=== PATIENT | female | born 1935 | race African-American/Black ===

== ENCOUNTER 2019-03-22 04:50 | Inpatient (IN) ==
[2019-03-22] MEDS ORDERED: KETAMINE 500 MG/10 ML VIAL IV STA (05:04)
[2019-03-22] MEDS ORDERED: SODIUM CHLORIDE 0.9% 1,000 ML IV STA (05:11)
[2019-03-22] MEDS ORDERED: NOREPINEPHRINE 8 MG in SODIUM CHLORIDE 0.9% 242 ML IV PRN (05:11)
[2019-03-22] MEDS ORDERED: NOREPINEPHRINE 4 MG/4 ML VIAL IV ONE (05:12)
[2019-03-22 05:17] LABS: Basophils % 0.3 % (0.0-0.8); Hematocrit 33.8 VOL% (35.7-47.0); Hemoglobin 10.4 GM/DL (12.0-16.0); Immature Granulocytes % 0.7 %; Immature Granulocytes Absolute 0.08 #; Lymphocytes # 1.4 10*3/uL (1.4-4.0); Lymphocytes % 12.7 % (21.3-54.2); Mean Corpuscular HGB Conc 30.8 GM/DL (32-36); Mean Corpuscular Volume 97.4 FL (87-102); Mean Platelet Volume 11.2 FL (9.6-12.0); Monocytes % 6.2 % (1.7-12.7); Neutrophils % 80.1 % (38.7-73.9); Platelet Count 193 T/CUMM (130-400); Red Blood Count 3.47 MC/CUMM (3.8-5.5); Red Cell Distribution Width 12.9 % (9.3-17.3); White Blood Count 11.1 T/CUMM (4-12)
[2019-03-22 05:23] LABS: ABG Base Excess -5.5 MMOL/L (-2.5-2.5); ABG HCO3 19.9 MMOL/L (20-26); ABG Oxygen Saturation 99.7 % (95-100); ABG PCO2 30.2 MM HG (35-48); ABG PH 7.394 (7.35-7.45); ABG TCO2 16.7 MMOL/L (23-27); Allen Test Positive; Pt O2 Delivery Device Ventilator
[2019-03-22 05:30] LABS: PT Patient Result 10.4 SECS; Partial Thromboplastin Time 23.4 SECS (0-40)
[2019-03-22 05:40] LABS: Albumin 3.9 G/DL (3.4-5.0); Bilirubin,Total 0.4 MG/DL (0.2-1.0); Osmolality,Calculated 295.2 MOS/KG (273-304); Total Protein 7.5 G/DL (6.4-8.3)
[2019-03-22] MEDS ORDERED: DEXTROSE 50% 25 GM/50 ML VIAL IV PRN (06:27)
[2019-03-22] MEDS ORDERED: GLUCAGON 1 MG VIAL IM PRN (06:27)
[2019-03-22] MEDS: MIDAZOLAM 100 MG in SODIUM CHLORIDE 0.9% 80 ML IV PRN (07:30)
[2019-03-22] MEDS: LACTATED RINGERS 1,000 ML IV SCH ×2 (07:31→16:51)
[2019-03-22] MEDS ORDERED: ONDANSETRON 4 MG/2 ML VIAL IV PRN (09:27)
[2019-03-22] MEDS: FAMOTIDINE 20 MG/2 ML VIAL IV SCH ×2 (10:14→21:10)
[2019-03-22] MEDS: INSULIN LISPRO 100 UNIT/ML SUBCUT SCH ×4 (10:20→23:15)
[2019-03-22] MEDS: MORPHINE 4 MG/1 ML VIAL IV PRN ×3 (10:38→23:30)
[2019-03-22] MEDS ORDERED: OXYMETAZOLINE 0.05% NASAL SPRAY 15 ML BOTTLE ONE (12:01)
[2019-03-22] MEDS ORDERED: INSULIN LISPRO 100 UNIT/ML SUBCUT SCH ×2 (16:59→17:02)
[2019-03-22] MEDS: hydrALAZINE 20 MG/1 ML VIAL IV PRN (17:39)
[2019-03-22] MEDS ORDERED: niCARdipine INJ 25 MG in SODIUM CHLORIDE 0.9% 240 ML IV PRN (17:47)
[2019-03-22] MEDS ORDERED: PROPOFOL 1,000 MG/100 ML BOTTLE IV ONE (17:48)
[2019-03-22] MEDS: PROPOFOL 1,000 MG/100 ML BOTTLE IV SCH (17:52)
[2019-03-23] MEDS: INSULIN LISPRO 100 UNIT/ML SUBCUT SCH ×6 (00:47→23:37)
[2019-03-23] MEDS: hydrALAZINE 20 MG/1 ML VIAL IV PRN (00:55)
[2019-03-23] MEDS: LACTATED RINGERS 1,000 ML IV SCH (04:04)
[2019-03-23 04:18] LABS: ABG Base Excess -4.9 MMOL/L (-2.5-2.5); ABG HCO3 18.2 MMOL/L (20-26); ABG Oxygen Saturation 98.9 % (95-100); ABG PCO2 27.8 MM HG (35-48); ABG PH 7.433 (7.35-7.45); ABG PO2 177.1 MM HG (80-95); Allen Test Positive; Pt O2 Delivery Device Ventilator
[2019-03-23] MEDS: MORPHINE 4 MG/1 ML VIAL IV PRN (05:08)
[2019-03-23 05:24] LABS: Basophils % 0.3 % (0.0-0.8); Eosinophils % 0.3 % (0.00-10.9); Hematocrit 29.1 VOL% (35.7-47.0); Hemoglobin 9.5 GM/DL (12.0-16.0); Immature Granulocytes % 0.4 %; Immature Granulocytes Absolute 0.04 #; Lymphocytes # 1.8 10*3/uL (1.4-4.0); Lymphocytes % 18.1 % (21.3-54.2); Mean Corpuscular HGB Conc 32.6 GM/DL (32-36); Mean Corpuscular Volume 93.9 FL (87-102); Mean Platelet Volume 11.6 FL (9.6-12.0); Neutrophils % 67.9 % (38.7-73.9); Platelet Count 171 T/CUMM (130-400); Red Cell Distribution Width 13.2 % (9.3-17.3); White Blood Count 9.8 T/CUMM (4-12)
[2019-03-23 05:46] LABS: Blood Urea Nitrogen 41 MG/DL (7-18); Calcium 8.8 MG/DL (8.5-10.1); Glucose 146 MG/DL (74-106); Osmolality,Calculated 289.5 MOS/KG (273-304); Troponin I < 0.015 NG/ML (0.00-0.045)
[2019-03-23] MEDS: MIDAZOLAM 100 MG in SODIUM CHLORIDE 0.9% 80 ML IV PRN (06:10)
[2019-03-23] MEDS: PROPOFOL 1,000 MG/100 ML BOTTLE IV SCH ×3 (07:55→18:11)
[2019-03-23] MEDS ORDERED: ISOSORBIDE MONONITRATE 60 MG TABLET PO SCH (09:00)
[2019-03-23] MEDS: CARVEDILOL 6.25 MG TABLET PO SCH ×2 (09:27→21:15)
[2019-03-23] MEDS: ATORVASTATIN 40 MG TABLET PO SCH (09:27)
[2019-03-23] MEDS: FAMOTIDINE 20 MG/2 ML VIAL IV SCH (09:27)
[2019-03-23] MEDS: amLODIPine 5 MG TABLET PO SCH (09:27)
[2019-03-23] MEDS ORDERED: MAGNESIUM SULF RIDER 2 GM in PREMIX 1 EACH IV ONE (09:56)
[2019-03-23] MEDS: NITROGLYCERIN 2% OINT 1 INCH/GM PACK TOP SCH ×2 (12:04→18:12)
[2019-03-24] MEDS: NITROGLYCERIN 2% OINT 1 INCH/GM PACK TOP SCH ×4 (00:01→18:48)
[2019-03-24 04:18] LABS: ABG Base Excess -5.6 MMOL/L (-2.5-2.5); ABG HCO3 19.8 MMOL/L (20-26); ABG PCO2 37.3 MM HG (35-48); ABG PH 7.332 (7.35-7.45); ABG TCO2 18.4 MMOL/L (23-27); Allen Test Positive; Pt O2 Delivery Device Ventilator
[2019-03-24] MEDS: PROPOFOL 1,000 MG/100 ML BOTTLE IV SCH ×4 (04:23→20:59)
[2019-03-24 05:43] LABS: Basophils % 0.2 % (0.0-0.8); Eosinophils % 0.1 % (0.00-10.9); Hemoglobin 7.8 GM/DL (12.0-16.0); Immature Granulocytes % 0.7 %; Immature Granulocytes Absolute 0.07 #; Lymphocytes % 9.8 % (21.3-54.2); Mean Corpuscular Volume 100.8 FL (87-102); Mean Platelet Volume 11.4 FL (9.6-12.0); Monocytes % 15.2 % (1.7-12.7); Platelet Count 129 T/CUMM (130-400); Red Blood Count 2.58 MC/CUMM (3.8-5.5); Red Cell Distribution Width 13.4 % (9.3-17.3); White Blood Count 10.6 T/CUMM (4-12)
[2019-03-24 06:12] LABS: Calcium 8.6 MG/DL (8.5-10.1); Osmolality,Calculated 290.8 MOS/KG (273-304)
[2019-03-24 06:42] LABS: Calcium 8.4 MG/DL (8.5-10.1); Prealbumin 18.5 MG/DL (20-40)
[2019-03-24] MEDS: INSULIN LISPRO 100 UNIT/ML SUBCUT SCH ×3 (07:18→18:23)
[2019-03-24] MEDS: LACTATED RINGERS 1,000 ML IV SCH ×3 (07:26→16:37)
[2019-03-24] MEDS: CARVEDILOL 6.25 MG TABLET PO SCH ×2 (08:52→20:06)
[2019-03-24] MEDS: INSULIN GLARGINE 100 UNIT/ML SUBCUT SCH (08:52)
[2019-03-24] MEDS: FAMOTIDINE 20 MG/2 ML VIAL IV SCH (08:53)
[2019-03-24] MEDS: ATORVASTATIN 40 MG TABLET PO SCH (08:53)
[2019-03-24] MEDS: amLODIPine 5 MG TABLET PO SCH (08:53)
[2019-03-24] MEDS: MIDAZOLAM 100 MG in SODIUM CHLORIDE 0.9% 80 ML IV PRN (09:00)
[2019-03-25] MEDS: INSULIN LISPRO 100 UNIT/ML SUBCUT SCH ×4 (00:54→18:25)
[2019-03-25] MEDS: NITROGLYCERIN 2% OINT 1 INCH/GM PACK TOP SCH ×4 (00:55→17:09)
[2019-03-25] MEDS: PROPOFOL 1,000 MG/100 ML BOTTLE IV SCH ×2 (02:52→17:08)
[2019-03-25 04:14] LABS: Allen Test Positive; Pt O2 Delivery Device Ventilator
[2019-03-25 04:15] LABS: ABG HCO3 16.9 MMOL/L (20-26); ABG PCO2 31.9 MM HG (35-48); ABG PH 7.342 (7.35-7.45); ABG PO2 86.6 MM HG (80-95); ABG TCO2 17.9 MMOL/L (23-27)
[2019-03-25 06:16] LABS: Basophils % 0.1 % (0.0-0.8); Hematocrit 23.6 VOL% (35.7-47.0); Hemoglobin 7.4 GM/DL (12.0-16.0); Immature Granulocytes % 0.6 %; Immature Granulocytes Absolute 0.04 #; Lymphocytes # 0.6 10*3/uL (1.4-4.0); Lymphocytes % 8.8 % (21.3-54.2); Mean Corpuscular HGB Conc 31.4 GM/DL (32-36); Mean Corpuscular Volume 96.3 FL (87-102); Mean Platelet Volume 11.8 FL (9.6-12.0); Monocytes % 12.1 % (1.7-12.7); Neutrophils % 78.4 % (38.7-73.9); Platelet Count 126 T/CUMM (130-400); Red Blood Count 2.45 MC/CUMM (3.8-5.5); Red Cell Distribution Width 13.2 % (9.3-17.3); White Blood Count 7.2 T/CUMM (4-12)
[2019-03-25 06:33] LABS: Calcium 8.1 MG/DL (8.5-10.1); Osmolality,Calculated 293.4 MOS/KG (273-304)
[2019-03-25 06:37] LABS: Hypochromasia 1+; Platelet Estimate Normal
[2019-03-25] MEDS: LACTATED RINGERS 1,000 ML IV SCH ×3 (07:32→16:30)
[2019-03-25] MEDS ORDERED: SODIUM CHLORIDE 0.9% 1,000 ML IV PRN (07:42)
[2019-03-25] MEDS: amLODIPine 5 MG TABLET PO SCH (08:44)
[2019-03-25] MEDS: CARVEDILOL 6.25 MG TABLET PO SCH ×2 (08:45→20:53)
[2019-03-25] MEDS: ATORVASTATIN 40 MG TABLET PO SCH (08:45)
[2019-03-25] MEDS: FAMOTIDINE 20 MG/2 ML VIAL IV SCH (08:45)
[2019-03-25] MEDS: INSULIN GLARGINE 100 UNIT/ML SUBCUT SCH (08:46)
[2019-03-26] MEDS: INSULIN LISPRO 100 UNIT/ML SUBCUT SCH ×4 (01:18→18:18)
[2019-03-26] MEDS: NITROGLYCERIN 2% OINT 1 INCH/GM PACK TOP SCH ×4 (01:19→17:45)
[2019-03-26 04:17] LABS: Allen Test Positive; Pt O2 Delivery Device Ventilator
[2019-03-26 04:18] LABS: ABG Base Excess -7.4 MMOL/L (-2.5-2.5); ABG HCO3 18.3 MMOL/L (20-26); ABG Oxygen Saturation 89.3 % (95-100); ABG PCO2 32.8 MM HG (35-48); ABG PH 7.334 (7.35-7.45); ABG PO2 58.8 MM HG (80-95); ABG TCO2 14.9 MMOL/L (23-27)
[2019-03-26 04:48] LABS: ABG HCO3 17.8 MMOL/L (20-26); ABG Oxygen Saturation 91.6 % (95-100); ABG PCO2 29.4 MM HG (35-48); ABG PH 7.356 (7.35-7.45); ABG PO2 62.4 MM HG (80-95); ABG TCO2 15.1 MMOL/L (23-27); Allen Test Positive; Pt O2 Delivery Device Ventilator
[2019-03-26 04:59] LABS: Basophils % 0.3 % (0.0-0.8); Hematocrit 28.2 VOL% (35.7-47.0); Hemoglobin 9.3 GM/DL (12.0-16.0); Lymphocytes # 0.8 10*3/uL (1.4-4.0); Lymphocytes % 7.7 % (21.3-54.2); Mean Corpuscular Volume 92.8 FL (87-102); Mean Platelet Volume 11.9 FL (9.6-12.0); Monocytes % 14.3 % (1.7-12.7); Neutrophils % 76.7 % (38.7-73.9); Platelet Count 128 T/CUMM (130-400); Red Blood Count 3.04 MC/CUMM (3.8-5.5); Red Cell Distribution Width 13.7 % (9.3-17.3); White Blood Count 9.8 T/CUMM (4-12)
[2019-03-26 05:13] LABS: Osmolality,Calculated 302.1 MOS/KG (273-304)
[2019-03-26 05:36] LABS: Band Neutrophils 16 % (0-10); Hypochromasia Slight; Lymphocytes 7 % (20-55); Platelet Estimate Normal; Segmented Neutrophils 65 % (50-85); Total Cells Counted 100
[2019-03-26] MEDS ORDERED: SODIUM CHLORIDE 0.9% 1,000 ML IV SCH (06:30)
[2019-03-26] MEDS: PIPERACILLIN/TAZOBACTAM 3,375 MG in SODIUM CHLORIDE 0.9% 100 ML IV SCH ×2 (07:10→19:45)
[2019-03-26] MEDS: methylPREDNISolone SOD SUC 40 MG/1 ML VIAL IV SCH ×3 (07:10→21:36)
[2019-03-26] MEDS ORDERED: INSULIN GLARGINE 100 UNIT/ML SUBCUT SCH (08:36)
[2019-03-26] MEDS: LACTATED RINGERS 1,000 ML IV SCH (08:43)
[2019-03-26] MEDS: FAMOTIDINE 20 MG/2 ML VIAL IV SCH (09:12)
[2019-03-26] MEDS: ATORVASTATIN 40 MG TABLET PO SCH (09:12)
[2019-03-26] MEDS: CARVEDILOL 6.25 MG TABLET PO SCH ×2 (09:12→21:40)
[2019-03-26] MEDS: amLODIPine 5 MG TABLET PO SCH (09:12)
[2019-03-26] MEDS: SODIUM BICARB INJ 50 MEQ in SODIUM CHLORIDE 0.45% 1,000 ML IV SCH ×2 (09:50→19:48)
[2019-03-26] MEDS: SODIUM CHLORIDE 0.65% NASAL SPRAY 45 ML BOTTLE BOTH NARES SCH ×2 (14:51→21:35)
[2019-03-26] MEDS: ALBUTEROL/IPRATROPIUM 3 ML NEB RESP TX SCH ×3 (16:06→22:50)
[2019-03-26] MEDS: PROPOFOL 1,000 MG/100 ML BOTTLE IV SCH (17:44)
[2019-03-26] MEDS: MORPHINE 4 MG/1 ML VIAL IV PRN (21:38)
[2019-03-27] MEDS: INSULIN LISPRO 100 UNIT/ML SUBCUT SCH ×4 (00:21→17:55)
[2019-03-27] MEDS: NITROGLYCERIN 2% OINT 1 INCH/GM PACK TOP SCH ×4 (00:22→18:06)
[2019-03-27] MEDS: ALBUTEROL/IPRATROPIUM 3 ML NEB RESP TX SCH ×6 (03:05→23:23)
[2019-03-27 04:18] LABS: ABG Base Excess -7.5 MMOL/L (-2.5-2.5); ABG HCO3 18.3 MMOL/L (20-26); ABG PCO2 31.6 MM HG (35-48); ABG PH 7.346 (7.35-7.45); ABG PO2 79.6 MM HG (80-95); ABG TCO2 15.9 MMOL/L (23-27); Allen Test Positive; Pt O2 Delivery Device Ventilator
[2019-03-27 05:08] LABS: Basophils % 0.3 % (0.0-0.8); Hematocrit 27.8 VOL% (35.7-47.0); Hemoglobin 9.3 GM/DL (12.0-16.0); Immature Granulocytes % 0.6 %; Immature Granulocytes Absolute 0.05 #; Lymphocytes # 0.5 10*3/uL (1.4-4.0); Lymphocytes % 5.5 % (21.3-54.2); Mean Corpuscular HGB Conc 33.5 GM/DL (32-36); Mean Corpuscular Volume 91.4 FL (87-102); Mean Platelet Volume 11.7 FL (9.6-12.0); Monocytes % 10.1 % (1.7-12.7); NRBC # 0.02 10*3/uL; Neutrophils % 83.5 % (38.7-73.9); Platelet Count 145 T/CUMM (130-400); Red Blood Count 3.04 MC/CUMM (3.8-5.5); Red Cell Distribution Width 13.7 % (9.3-17.3); White Blood Count 8.6 T/CUMM (4-12)
[2019-03-27 05:37] LABS: Calcium 7.7 MG/DL (8.5-10.1); Osmolality,Calculated 307.2 MOS/KG (273-304)
[2019-03-27] MEDS: SODIUM BICARB INJ 50 MEQ in SODIUM CHLORIDE 0.45% 1,000 ML IV SCH ×3 (05:51→21:01)
[2019-03-27 05:56] LABS: Band Neutrophils 3 % (0-10); Lymphocytes 7 % (20-55); Segmented Neutrophils 86 % (50-85); Total Cells Counted 100
[2019-03-27 05:57] LABS: Hypochromasia 1+; Microcytosis Slight; Platelet Estimate Adequate
[2019-03-27] MEDS: methylPREDNISolone SOD SUC 40 MG/1 ML VIAL IV SCH ×3 (06:30→22:27)
[2019-03-27] MEDS: PIPERACILLIN/TAZOBACTAM 3,375 MG in SODIUM CHLORIDE 0.9% 100 ML IV SCH ×2 (06:30→18:17)
[2019-03-27] MEDS ORDERED: LEVOFLOXACIN INJ 750 MG in PREMIX 1 EACH IV SCH (08:30)
[2019-03-27] MEDS: INSULIN GLARGINE 100 UNIT/ML SUBCUT SCH (09:19)
[2019-03-27] MEDS: CARVEDILOL 6.25 MG TABLET PO SCH ×2 (09:20→22:25)
[2019-03-27] MEDS: amLODIPine 5 MG TABLET PO SCH (09:20)
[2019-03-27] MEDS: ATORVASTATIN 40 MG TABLET PO SCH (09:20)
[2019-03-27] MEDS: FAMOTIDINE 20 MG/2 ML VIAL IV SCH (09:20)
[2019-03-27] MEDS: SODIUM CHLORIDE 0.65% NASAL SPRAY 45 ML BOTTLE BOTH NARES SCH ×3 (09:35→22:25)
[2019-03-28] MEDS: NITROGLYCERIN 2% OINT 1 INCH/GM PACK TOP SCH ×3 (00:32→12:04)
[2019-03-28] MEDS: INSULIN LISPRO 100 UNIT/ML SUBCUT SCH ×5 (01:29→23:54)
[2019-03-28] MEDS: ALBUTEROL/IPRATROPIUM 3 ML NEB RESP TX SCH ×6 (03:32→22:52)
[2019-03-28 03:51] LABS: ABG Base Excess -5.2 MMOL/L (-2.5-2.5); ABG HCO3 20.1 MMOL/L (20-26); ABG Oxygen Saturation 94.3 % (95-100); ABG PCO2 31.8 MM HG (35-48); ABG PH 7.384 (7.35-7.45); ABG PO2 72.1 MM HG (80-95); ABG TCO2 17.2 MMOL/L (23-27); Allen Test Positive
[2019-03-28 04:54] LABS: Basophils % 0.3 % (0.0-0.8); Hematocrit 30.8 VOL% (35.7-47.0); Hemoglobin 10.3 GM/DL (12.0-16.0); Immature Granulocytes Absolute 0.11 #; Lymphocytes # 0.6 10*3/uL (1.4-4.0); Lymphocytes % 5.1 % (21.3-54.2); Mean Corpuscular HGB Conc 33.4 GM/DL (32-36); Mean Corpuscular Volume 91.1 FL (87-102); Mean Platelet Volume 11.6 FL (9.6-12.0); Monocytes % 7.2 % (1.7-12.7); Neutrophils % 86.4 % (38.7-73.9); Platelet Count 189 T/CUMM (130-400); Red Blood Count 3.38 MC/CUMM (3.8-5.5); Red Cell Distribution Width 13.6 % (9.3-17.3); White Blood Count 10.8 T/CUMM (4-12)
[2019-03-28 05:16] LABS: Calcium 8.2 MG/DL (8.5-10.1); Osmolality,Calculated 306.1 MOS/KG (273-304)
[2019-03-28 05:42] LABS: Band Neutrophils 1 % (0-10); Lymphocytes 10 % (20-55); Platelet Estimate Normal; Segmented Neutrophils 84 % (50-85); Total Cells Counted 100
[2019-03-28] MEDS: methylPREDNISolone SOD SUC 40 MG/1 ML VIAL IV SCH ×3 (06:26→23:28)
[2019-03-28] MEDS: PIPERACILLIN/TAZOBACTAM 3,375 MG in SODIUM CHLORIDE 0.9% 100 ML IV SCH (06:27)
[2019-03-28] MEDS: SODIUM BICARB INJ 50 MEQ in SODIUM CHLORIDE 0.45% 1,000 ML IV SCH ×2 (07:39→11:10)
[2019-03-28] MEDS ORDERED: AMPICILLIN INJ 1,000 MG in SODIUM CHLORIDE 0.9% 100 ML IV SCH (09:00)
[2019-03-28] MEDS: amLODIPine 5 MG TABLET PO SCH (09:21)
[2019-03-28] MEDS: CARVEDILOL 6.25 MG TABLET PO SCH ×2 (09:21→20:57)
[2019-03-28] MEDS: ATORVASTATIN 40 MG TABLET PO SCH (09:21)
[2019-03-28] MEDS: FAMOTIDINE 20 MG/2 ML VIAL IV SCH (09:22)
[2019-03-28] MEDS: INSULIN GLARGINE 100 UNIT/ML SUBCUT SCH (09:25)
[2019-03-28] MEDS: SODIUM CHLORIDE 0.65% NASAL SPRAY 45 ML BOTTLE BOTH NARES SCH ×3 (09:37→21:46)
[2019-03-28] MEDS: MORPHINE 4 MG/1 ML VIAL IV PRN ×2 (10:30→20:57)
[2019-03-28] MEDS ORDERED: cefTRIAXone 1,000 MG in SYRINGE 1 EACH IV SCH (13:30)
[2019-03-28] MEDS: ISOSORBIDE MONONITRATE 30 MG TABLET PO SCH (14:04)
[2019-03-29] MEDS: ALBUTEROL/IPRATROPIUM 3 ML NEB RESP TX SCH ×6 (02:07→23:35)
[2019-03-29 03:33] LABS: ABG Base Excess -4.5 MMOL/L (-2.5-2.5); ABG HCO3 21.3 MMOL/L (20-26); ABG Oxygen Saturation 93.3 % (95-100); ABG PCO2 41.8 MM HG (35-48); ABG PH 7.325 (7.35-7.45); ABG PO2 81.3 MM HG (80-95); ABG TCO2 22.6 MMOL/L (23-27); Allen Test Positive; Pt O2 Delivery Device Other
[2019-03-29] MEDS: SODIUM BICARB INJ 50 MEQ in SODIUM CHLORIDE 0.45% 1,000 ML IV SCH ×3 (04:30→21:39)
[2019-03-29 04:53] LABS: Basophils % 0.2 % (0.0-0.8); Hematocrit 31.7 VOL% (35.7-47.0); Hemoglobin 10.6 GM/DL (12.0-16.0); Immature Granulocytes Absolute 0.11 #; Lymphocytes # 0.6 10*3/uL (1.4-4.0); Lymphocytes % 5.7 % (21.3-54.2); Mean Corpuscular HGB Conc 33.4 GM/DL (32-36); Mean Corpuscular Volume 92.2 FL (87-102); Mean Platelet Volume 11.3 FL (9.6-12.0); Monocytes % 6.6 % (1.7-12.7); Neutrophils % 86.5 % (38.7-73.9); Platelet Count 192 T/CUMM (130-400); Red Blood Count 3.44 MC/CUMM (3.8-5.5); Red Cell Distribution Width 13.8 % (9.3-17.3); White Blood Count 10.8 T/CUMM (4-12)
[2019-03-29 05:14] LABS: Calcium 8.5 MG/DL (8.5-10.1); Osmolality,Calculated 310.7 MOS/KG (273-304)
[2019-03-29] MEDS: methylPREDNISolone SOD SUC 40 MG/1 ML VIAL IV SCH ×3 (05:52→21:53)
[2019-03-29] MEDS: INSULIN LISPRO 100 UNIT/ML SUBCUT SCH ×3 (05:55→18:34)
[2019-03-29] MEDS ORDERED: ACETAMINOPHEN 325 MG TABLET PO PRN (07:34)
[2019-03-29] MEDS ORDERED: LEVOFLOXACIN 750 MG TABLET PER TUBE SCH (09:00)
[2019-03-29] MEDS: ATORVASTATIN 40 MG TABLET PO SCH (09:22)
[2019-03-29] MEDS: amLODIPine 10 MG TABLET PO SCH (09:22)
[2019-03-29] MEDS: CARVEDILOL 6.25 MG TABLET PO SCH ×2 (09:23→21:38)
[2019-03-29] MEDS: ISOSORBIDE MONONITRATE 30 MG TABLET PO SCH (09:23)
[2019-03-29] MEDS: FAMOTIDINE 20 MG/2 ML VIAL IV SCH (09:23)
[2019-03-29] MEDS: INSULIN GLARGINE 100 UNIT/ML SUBCUT SCH (09:26)
[2019-03-29] MEDS: SODIUM CHLORIDE 0.65% NASAL SPRAY 45 ML BOTTLE BOTH NARES SCH ×3 (09:27→21:40)
[2019-03-29] MEDS ORDERED: LEVOFLOXACIN 750 MG TABLET PO SCH (09:30)
[2019-03-29] MEDS ORDERED: DONEPEZIL 10 MG TABLET PO SCH (21:00)
[2019-03-29] MEDS: FERROUS SULFATE 325 MG TABLET PO SCH (21:38)
[2019-03-29] MEDS: prednisoLONE ACETATE 1% OPH SUSP 5 ML BOTTLE BOTH EYES SCH (21:48)
[2019-03-30] MEDS: INSULIN LISPRO 100 UNIT/ML SUBCUT SCH ×4 (00:38→17:32)
[2019-03-30] MEDS: ALBUTEROL/IPRATROPIUM 3 ML NEB RESP TX SCH ×5 (03:30→19:55)
[2019-03-30 06:00] LABS: Calcium 8.3 MG/DL (8.5-10.1); Osmolality,Calculated 303.8 MOS/KG (273-304)
[2019-03-30 07:00] LABS: Basophils % 0.1 % (0.0-0.8); Hematocrit 32.8 VOL% (35.7-47.0); Hemoglobin 10.5 GM/DL (12.0-16.0); Immature Granulocytes % 1.4 %; Immature Granulocytes Absolute 0.13 #; Lymphocytes # 0.7 10*3/uL (1.4-4.0); Lymphocytes % 7.3 % (21.3-54.2); Mean Corpuscular Volume 93.4 FL (87-102); Mean Platelet Volume 10.9 FL (9.6-12.0); Neutrophils % 84.2 % (38.7-73.9); Platelet Count 222 T/CUMM (130-400); Red Blood Count 3.51 MC/CUMM (3.8-5.5); Red Cell Distribution Width 13.7 % (9.3-17.3); White Blood Count 9.4 T/CUMM (4-12)
[2019-03-30] MEDS: methylPREDNISolone SOD SUC 40 MG/1 ML VIAL IV SCH ×2 (07:15→15:49)
[2019-03-30] MEDS: prednisoLONE ACETATE 1% OPH SUSP 5 ML BOTTLE BOTH EYES SCH (08:03)
[2019-03-30] MEDS: INSULIN GLARGINE 100 UNIT/ML SUBCUT SCH (08:03)
[2019-03-30] MEDS: SODIUM CHLORIDE 0.65% NASAL SPRAY 45 ML BOTTLE BOTH NARES SCH ×2 (08:03→15:49)
[2019-03-30] MEDS: ATORVASTATIN 40 MG TABLET PO SCH (08:04)
[2019-03-30] MEDS: ISOSORBIDE MONONITRATE 30 MG TABLET PO SCH (08:04)
[2019-03-30] MEDS: CARVEDILOL 6.25 MG TABLET PO SCH (08:04)
[2019-03-30] MEDS: FERROUS SULFATE 325 MG TABLET PO SCH (08:04)
[2019-03-30] MEDS: amLODIPine 10 MG TABLET PO SCH (08:04)
[2019-03-30] MEDS ORDERED: CLOPIDOGREL 75 MG TABLET PO SCH (09:00)
[2019-03-30] MEDS ORDERED: FAMOTIDINE 20 MG TABLET PO SCH (09:00)
[2019-03-30] MEDS: SODIUM BICARB INJ 50 MEQ in SODIUM CHLORIDE 0.45% 1,000 ML IV SCH (13:53)
[2019-03-30] MEDS ORDERED: LIDOCAINE 1%/EPI INJ 20 ML VIAL ONE (15:23)
[2019-03-30] MEDS ORDERED: TISSUE ADHESIVE 1 EACH APPLICATOR TOP ONE (15:23)
[2019-03-30 16:37] VITALS: BP 138/77
[2019-03-30] MEDS ORDERED: LIDOCAINE 1%/EPI INJ 20 ML VIAL INFILTRAT STA (17:02)
== END 2019-03-30 19:41 | DRG 260 ==
LOC: SUATTDRO → EDBD → EDUNIT# → N.ED 04:50 → SUATTDRO 08:03 → N.EDINP 08:03 → N.ICU 14:33 → N.3E 03-30 08:27
PROVIDERS: ADMIT Internal Medicine

== ENCOUNTER 2019-06-30 13:43 | Inpatient (IN) ==
[2019-06-30] MEDS ORDERED: BISACODYL 5 MG TABLET PO PRN (15:11)
[2019-06-30] MEDS ORDERED: ONDANSETRON 4 MG/2 ML VIAL IV PRN (15:11)
[2019-06-30] MEDS ORDERED: ZALEPLON 5 MG CAPSULE PO PRN (15:11)
[2019-06-30] MEDS ORDERED: POTASSIUM CHLORIDE 20 MEQ TABLET PO PRN (15:11)
[2019-06-30] MEDS ORDERED: MAGNESIUM SULF RIDER 2 GM in PREMIX 1 EACH IV PRN (15:11)
[2019-06-30] MEDS ORDERED: MAGNESIUM SULF RIDER 4 GM in PREMIX 1 EACH IV PRN (15:11)
[2019-06-30] MEDS ORDERED: tiZANidine 4 MG TABLET PO PRN (16:14)
[2019-06-30] MEDS ORDERED: NITROGLYCERIN SL 0.4 MG TABLET SL PRN (16:14)
[2019-06-30] MEDS ORDERED: ALBUTEROL/IPRATROPIUM 3 ML NEB RESP TX PRN (16:14)
[2019-06-30] MEDS: SODIUM CHLORIDE 0.9% 1,000 ML IV SCH (16:25)
[2019-06-30] MEDS: PANTOPRAZOLE 40 MG TABLET PO SCH (16:27)
[2019-06-30] MEDS ORDERED: DARBEPOETIN ALFA IN POLYSORBAT 60 MCG SUBCUT SCH (16:30)
[2019-06-30 16:35] LABS: Troponin I < 0.015 NG/ML (0.00-0.045)
[2019-06-30 16:40] LABS: Alanine Aminotransferase 22 U/L (13-56); Albumin 3.4 G/DL (3.4-5.0); Alkaline Phosphatase 74 U/L (45-117); Aspartate Amino Transferase 8 U/L (0-37); Bilirubin,Total < 0.39 MG/DL (0.2-1.0); Blood Urea Nitrogen 53 MG/DL (7-18); Calcium 8.2 MG/DL (8.5-10.1); Estimated Glom Filtration Rate 21 ML/MIN; Glucose 360 MG/DL (74-106); Osmolality,Calculated 296.2 MOS/KG (273-304); Thyroid Stimulating Hormone 0.568 uIU/ml (0.358-3.74); Total Protein 6.7 G/DL (6.4-8.3)
[2019-06-30 16:51] LABS: Basophils % 0.4 % (0.0-0.8); Hematocrit 30.3 VOL% (35.7-47.0); Hemoglobin 9.6 GM/DL (12.0-16.0); Immature Granulocytes % 0.7 %; Immature Granulocytes Absolute 0.05 #; Lymphocytes # 0.6 10*3/uL (1.4-4.0); Lymphocytes % 9.2 % (21.3-54.2); Mean Corpuscular HGB Conc 31.7 GM/DL (32-36); Mean Corpuscular Volume 96.8 FL (87-102); Mean Platelet Volume 11.5 FL (9.6-12.0); Monocytes % 2.7 % (1.7-12.7); Platelet Count 161 T/CUMM (130-400); Red Blood Count 3.13 MC/CUMM (3.8-5.5); Red Cell Distribution Width 14.5 % (9.3-17.3); White Blood Count 6.8 T/CUMM (4-12)
[2019-06-30] MEDS ORDERED: INSULIN LISPRO 100 UNIT/ML SUBCUT PRN (17:00)
[2019-06-30 18:57] LABS: Troponin I < 0.015 NG/ML (0.00-0.045)
[2019-06-30] MEDS ORDERED: SODIUM POLYSTYRENE SULFATE 15 GM/60 ML BOTTLE PO ONE (19:19)
[2019-06-30] MEDS ORDERED: ENOXAPARIN 40 MG/0.4 ML SYRINGE SUBCUT SCH (21:00)
[2019-06-30] MEDS ORDERED: ENOXAPARIN 30 MG/0.3 ML SYRINGE SUBCUT SCH (21:00)
[2019-06-30] MEDS: INSULIN GLARGINE 100 UNIT/ML SUBCUT SCH (21:40)
[2019-06-30] MEDS: DONEPEZIL 10 MG TABLET PO SCH (21:40)
[2019-06-30] MEDS: FERROUS SULFATE 325 MG TABLET PO SCH (21:40)
[2019-06-30] MEDS: ASPIRIN EC 81 MG TABLET PO SCH (21:40)
[2019-06-30] MEDS: carvediloL 6.25 MG TABLET PO SCH (21:40)
[2019-06-30 22:21] LABS: Troponin I < 0.015 NG/ML (0.00-0.045)
[2019-07-01 05:36] LABS: Basophils % 0.3 % (0.0-0.8); Eosinophils % 0.6 % (0.00-10.9); Hematocrit 26.8 VOL% (35.7-47.0); Hemoglobin 8.6 GM/DL (12.0-16.0); Immature Granulocytes % 0.4 %; Immature Granulocytes Absolute 0.03 #; Lymphocytes # 1.6 10*3/uL (1.4-4.0); Lymphocytes % 23.1 % (21.3-54.2); Mean Corpuscular HGB Conc 32.1 GM/DL (32-36); Mean Corpuscular Volume 95.4 FL (87-102); Mean Platelet Volume 11.2 FL (9.6-12.0); Monocytes % 13.1 % (1.7-12.7); Neutrophils % 62.5 % (38.7-73.9); Platelet Count 146 T/CUMM (130-400); Red Blood Count 2.81 MC/CUMM (3.8-5.5); Red Cell Distribution Width 14.2 % (9.3-17.3); White Blood Count 6.7 T/CUMM (4-12)
[2019-07-01 05:54] LABS: Calcium 8.3 MG/DL (8.5-10.1); Osmolality,Calculated 295.1 MOS/KG (273-304); Risk Ratio 2.69; VLDL CHOLESTEROL 21.2 MG/DL
[2019-07-01] MEDS ORDERED: SODIUM CHLORIDE 0.9% 1,000 ML IV SCH (06:00)
[2019-07-01] MEDS ORDERED: diphenhydrAMINE CAP 25 MG CAPSULE PO ONE (06:00)
[2019-07-01] MEDS ORDERED: ceFAZolin 1,000 MG in SYRINGE 1 EACH IV ONE (06:00)
[2019-07-01] MEDS ORDERED: DIAZEPAM 5 MG TABLET PO ONE (06:00)
[2019-07-01] MEDS ORDERED: ceFAZolin 1,000 MG VIAL IRRIG ONE (06:00)
[2019-07-01] MEDS: SODIUM CHLORIDE 0.9% 1,000 ML IV SCH (06:11)
[2019-07-01] MEDS ORDERED: HEPARIN/NACL 0.9% 2 UNITS/ML 1,000 ML IV ONE (07:25)
[2019-07-01] MEDS ORDERED: LIDOCAINE 1% 20 ML VIAL ONE ×2 (07:25→08:14)
[2019-07-01] MEDS: amLODIPine 10 MG TABLET PO SCH ×2 (07:32→08:27)
[2019-07-01] MEDS: carvediloL 6.25 MG TABLET PO SCH ×3 (07:32→21:29)
[2019-07-01] MEDS: CLOPIDOGREL 75 MG TABLET PO SCH ×2 (07:33→08:27)
[2019-07-01] MEDS ORDERED: TISSUE ADHESIVE 1 EACH APPLICATOR TOP ONE (08:13)
[2019-07-01] MEDS ORDERED: ceFAZolin 1,000 MG VIAL ONE (08:14)
[2019-07-01] MEDS ORDERED: HEPARIN/NACL 0.9% 2 UNITS/ML 500 ML IV ONE (08:14)
[2019-07-01] MEDS ORDERED: MIDAZOLAM 2 MG/2 ML VIAL ONE (08:28)
[2019-07-01] MEDS ORDERED: fentaNYL 100 MCG/2 ML VIAL ONE (08:28)
[2019-07-01] MEDS ORDERED: LISINOPRIL/HCTZ 20-25 MG TABLET PO SCH (09:00)
[2019-07-01] MEDS ORDERED: GLUCAGON 1 MG VIAL IM PRN (11:37)
[2019-07-01] MEDS ORDERED: DEXTROSE 50% 25 GM/50 ML VIAL IV PRN (11:37)
[2019-07-01] MEDS: glipiZIDE 5 MG TABLET PO SCH (12:49)
[2019-07-01] MEDS: FERROUS SULFATE 325 MG TABLET PO SCH ×2 (14:05→21:29)
[2019-07-01] MEDS: ISOSORBIDE MONONITRATE 60 MG TABLET PO SCH (14:05)
[2019-07-01] MEDS: ATORVASTATIN 40 MG TABLET PO SCH (14:06)
[2019-07-01] MEDS: PANTOPRAZOLE 40 MG TABLET PO SCH (14:06)
[2019-07-01] MEDS: INSULIN GLARGINE 100 UNIT/ML SUBCUT SCH (21:29)
[2019-07-01] MEDS: ASPIRIN EC 81 MG TABLET PO SCH (21:29)
[2019-07-01] MEDS: DONEPEZIL 10 MG TABLET PO SCH (21:29)
[2019-07-02 06:47] LABS: Basophils % 0.6 % (0.0-0.8); Eosinophils # 0.1 10*3/uL (0.0-0.87); Eosinophils % 1.3 % (0.00-10.9); Hematocrit 27.4 VOL% (35.7-47.0); Hemoglobin 8.5 GM/DL (12.0-16.0); Immature Granulocytes % 0.6 %; Immature Granulocytes Absolute 0.04 #; Lymphocytes # 1.2 10*3/uL (1.4-4.0); Mean Corpuscular Volume 98.6 FL (87-102); Mean Platelet Volume 10.9 FL (9.6-12.0); Monocytes % 10.6 % (1.7-12.7); Neutrophils % 68.9 % (38.7-73.9); Platelet Count 147 T/CUMM (130-400); Red Blood Count 2.78 MC/CUMM (3.8-5.5); Red Cell Distribution Width 14.5 % (9.3-17.3); White Blood Count 6.9 T/CUMM (4-12)
[2019-07-02 07:13] LABS: Calcium 7.9 MG/DL (8.5-10.1); Osmolality,Calculated 294.8 MOS/KG (273-304)
[2019-07-02 07:56] VITALS: BP 107/56
[2019-07-02] MEDS: amLODIPine 10 MG TABLET PO SCH (09:54)
[2019-07-02] MEDS: PANTOPRAZOLE 40 MG TABLET PO SCH (09:54)
[2019-07-02] MEDS: FERROUS SULFATE 325 MG TABLET PO SCH (09:54)
[2019-07-02] MEDS: CLOPIDOGREL 75 MG TABLET PO SCH (09:54)
[2019-07-02] MEDS: glipiZIDE 5 MG TABLET PO SCH (09:54)
[2019-07-02] MEDS: carvediloL 6.25 MG TABLET PO SCH (09:54)
[2019-07-02] MEDS: ATORVASTATIN 40 MG TABLET PO SCH (09:54)
[2019-07-02] MEDS: ISOSORBIDE MONONITRATE 60 MG TABLET PO SCH (09:54)
== END 2019-07-02 12:20 | disposition home health service (06) | DRG 243 ==
LOC: N.TELES 14:33 → INTOOBSV 14:33
PROVIDERS: ADMIT Internal Medicine Cardiovascular Disease; ATTEND Internal Medicine Cardiovascular Disease
PROC: CLCCHCL (ICD-10-PCS; 2019-07-01 08:45)

== ENCOUNTER 2020-08-17 14:58 | Observation (INO) ==
[2020-08-17 16:07] LABS: Basophils % 0.6 % (0.0-0.8); Eosinophils # 0.1 10*3/uL (0.0-0.87); Eosinophils % 1.8 % (0.00-10.9); Hematocrit 31.3 VOL% (35.7-47.0); Hemoglobin 10.1 GM/DL (12.0-16.0); Immature Granulocytes % 0.3 %; Immature Granulocytes Absolute 0.02 #; Lymphocytes # 1.1 10*3/uL (1.4-4.0); Lymphocytes % 16.8 % (21.3-54.2); Mean Corpuscular HGB Conc 32.3 GM/DL (32-36); Mean Corpuscular Volume 94.8 FL (87-102); Mean Platelet Volume 10.4 FL (9.6-12.0); Monocytes # 0.6 10*3/uL (0.11-0.8); Monocytes % 9.8 % (1.7-12.7); Neutrophils % 70.7 % (38.7-73.9); Platelet Count 185 T/CUMM (130-400); Red Cell Distribution Width 13.1 % (9.3-17.3); White Blood Count 6.6 T/CUMM (4-12)
[2020-08-17 16:18] LABS: PT Patient Result 10.9 SECS (9.8-11.9)
[2020-08-17 16:32] LABS: Albumin 3.3 G/DL (3.4-5.0); Bilirubin,Total 0.4 MG/DL (0.2-1.0); Calcium 8.5 MG/DL (8.5-10.1); Osmolality,Calculated 274.8 MOS/KG (273-304); Potassium 4.7 MMOL/L (3.5-5.1); Total Protein 6.4 G/DL (6.4-8.3)
[2020-08-17] MEDS ORDERED: DEXTROSE 50% 25 GM/50 ML VIAL IV PRN (16:54)
[2020-08-17] MEDS ORDERED: ONDANSETRON 4 MG/2 ML VIAL IV PRN (16:54)
[2020-08-17] MEDS ORDERED: GLUCAGON 1 MG VIAL IM PRN (16:54)
[2020-08-17] MEDS ORDERED: ACETAMINOPHEN 325 MG TABLET PO PRN (16:54)
[2020-08-17] MEDS ORDERED: POTASSIUM CHLORIDE 20 MEQ TABLET PO PRN (16:56)
[2020-08-17] MEDS ORDERED: NITROGLYCERIN SL 0.4 MG TABLET SL PRN (17:51)
[2020-08-17] MEDS ORDERED: HEPARIN 5,000 UNIT/1 ML VIAL IV ONE ×2 (17:57→21:00)
[2020-08-17 20:17] LABS: Troponin I < 0.015 NG/ML (0.00-0.045)
[2020-08-17] MEDS: INSULIN REGULAR 100 UNIT/ML SUBCUT SCH (21:06)
[2020-08-18 01:36] LABS: Troponin I < 0.015 NG/ML (0.00-0.045)
[2020-08-18 02:49] LABS: Troponin I < 0.015 NG/ML (0.00-0.045)
[2020-08-18 02:50] LABS: Alanine Aminotransferase 13 U/L (13-56); Albumin 2.8 G/DL (3.4-5.0); Alkaline Phosphatase 68 U/L (45-117); Aspartate Amino Transferase 9 U/L (0-37); Bilirubin,Total < 0.39 MG/DL (0.2-1.0); Blood Urea Nitrogen 22 MG/DL (7-18); Calcium 8.3 MG/DL (8.5-10.1); Carbon Dioxide 24 MMOL/L (21-32); Chloride 109 MMOL/L (98-107); Estimated Glom Filtration Rate 30 ML/MIN; Glucose 122 MG/DL (74-106); Osmolality,Calculated 278.7 MOS/KG (273-304); Potassium 4.4 MMOL/L (3.5-5.1); Sodium 138 MMOL/L (136-145); Total Protein 5.9 G/DL (6.4-8.3)
[2020-08-18 02:52] LABS: Basophils % 0.6 % (0.0-0.8); Eosinophils # 0.1 10*3/uL (0.0-0.87); Eosinophils % 1.6 % (0.00-10.9); Hematocrit 29.7 VOL% (35.7-47.0); Hemoglobin 9.5 GM/DL (12.0-16.0); Immature Granulocytes % 0.2 %; Immature Granulocytes Absolute 0.01 #; Lymphocytes # 1.3 10*3/uL (1.4-4.0); Lymphocytes % 26.1 % (21.3-54.2); Mean Corpuscular Volume 94.6 FL (87-102); Mean Platelet Volume 10.3 FL (9.6-12.0); Monocytes # 0.7 10*3/uL (0.11-0.8); Monocytes % 13.2 % (1.7-12.7); Neutrophils % 58.3 % (38.7-73.9); Platelet Count 167 T/CUMM (130-400); Red Blood Count 3.14 MC/CUMM (3.8-5.5); Red Cell Distribution Width 13.2 % (9.3-17.3)
[2020-08-18] MEDS ORDERED: ASPIRIN EC 81 MG TABLET PO SCH (09:00)
[2020-08-18] MEDS ORDERED: PANTOPRAZOLE 40 MG TABLET PO SCH (09:00)
[2020-08-18] MEDS: INSULIN REGULAR 100 UNIT/ML SUBCUT SCH ×2 (09:21→11:26)
[2020-08-18 12:58] VITALS: BP 154/55
== END 2020-08-18 14:52 | disposition home or self-care (01) ==
LOC: EDUNIT# → EDBD → N.ED 14:58 → N.EDINP 14:58 → N.TELEN 17:20
PROVIDERS: ADMIT Family Medicine; ATTEND Family Medicine